=== PATIENT | male | born 1950 | race Caucasian/White ===

== ENCOUNTER 2019-10-22 09:46 | Day surgery (SDC) | payer OTHER ==
[~2019-10-22] VITALS: Ht 182.9 cm; Wt 133.8 kg
--- NOTE | ~2019-10-22 | P ---
[facility] [place] [address] PROCEDURE REPORT Name: NAVDEEP BABB Room #: DEP [facility].#: [id number] Admission: 10/22/19 Attend Phys: Danny Nuno MD Discharge: 10/22/19 Date of : 48 Report #: [id number] THIS REPORT FOR: cc: FAM - Family physician unknown FAM - Family physician unknown Danny Nuno MD ~ CC: Christen Solares MD FAM unknown CAROLYNN Nuno DATE OF SERVICE: 10/22/2019 PREOPERATIVE DIAGNOSIS: Basal cell carcinoma of left lower lid. POSTOPERATIVE DIAGNOSIS: Basal cell carcinoma of left lower lid and cheek. PROCEDURES: Excision of basal cell carcinoma of left lower lid and cheek with frozen sections, myocutaneous flap repair of defect with vascularized tarsoconjunctival flap from left upper lid to left lower lid and full-thickness skin graft from right upper lid to left lower lid. SURGEON: Danny Nuno MD. SUPERSONIC ENGINEER: None. ANESTHESIA: General. COMPLICATIONS: None. INDICATIONS FOR SURGERY: This pleasant 68-year-old gentleman has a history of having had a previous basal cell carcinoma resected from his left lower lid. His left lower lid has unfortunately healed in a manner such that it is retracted. I did not do that surgery. When he presented to me for correction of his lid retraction, it appeared that he still had tumor left medially. It was biopsied in the office and found to indeed be invasive basal cell carcinoma. He presents today for excision of his residual tumor. Informed consent was obtained to include but not limited to the potential risk for loss of vision, bleeding, infection, failure to improve the problem and the potential need for further surgery or treatment. DESCRIPTION OF PROCEDURE: The patient was taken to the operating room where general anesthesia was administered. The left lower lid, the left cheek, the left infratemporal fossa and the left lateral canthus in addition to the left medial canthus were all anesthetized with Xylocaine with epinephrine mixed with Marcaine and Wydase. The patient was subsequently prepped and draped in the [address] [address] PROCEDURE REPORT Name: NAVDEEP BABB Room #: DEP [facility] M.R.#: [id number] Admission: 10/22/19 Attend Phys: Danny Nuno MD Discharge: 10/22/19 Date of : 48 Report #: [id number] usual sterile fashion. A fine tip skin marking pen was then utilized to outline the residual tumor with a small margin of normal appearing tissue of approximately 1-2 mm. The incisions were then made perpendicularly across the eyelid margin and drawn down to a point in the premalar space. Relatively brisk bleeding ensued. The specimen was oriented on a drawing for the waiting pathologist and hemostasis achieved in the field with diligent pinpoint monopolar cautery. The pathologist snap-froze that tissue and found that the medial margin was positive for basal cell carcinoma. An additional 2-3 mm of the medial portion of the wound was then excised in a ____ fashion and passed off the field for the pathologist to examine en-face. Hemostasis was once again re-achieved in the field. She snap-froze that specimen and found that the margin was still positive. An additional 2-3 mm of tissue was then taken across the medial portion of the wound, which basically took the rest of the lid. The field was dried with monopolar cautery. The pathologist took that specimen. She now found that the margins appeared to be clear. This was not the anticipated defect from the beginning of the case. The reconstructive options were considered and a myocutaneous flap developed laterally to allow for suspension of the subsequent tarsal conjunctival flap superior. Relaxing incision was made and myocutaneous flap advanced. Hemostasis was achieved with ____ pinpoint monopolar cautery. That tissue was then suspended from Vicryl sutures laterally from periosteum. The left upper lid was then everted and anesthetized with Xylocaine with epinephrine with Marcaine. This is the same anesthetic mixture used at beginning of the case. A vascularized tarsoconjunctival flap was then developed utilizing an incision that started 3.5 mm above the inferior border of the tarsal plate. A tarsotomy was made across the lid and the huge tarsoconjunctival flap developed utilizing thin section techniques. The flap was not buttonholed, but all of the Marcos's muscle that was visible was taken from the backside of the conjunctivae. That flap was then advanced and secured into the residual defect into the medial canthus allowing a canthopexy to be accomplished with interrupted 6-0 Vicryl sutures. Additional sutures were then used inferiorly and laterally to draw the lid back into a more medial one position and elevate the lid margin. A fine tip skin marking pen was then utilized to outline the full-thickness skin graft from the lateral right upper lid. An additional aliquot of the same anesthetic previously used was then administered. The incisions were then made with a Yazan scissor and a full-thickness skin graft harvested utilizing thin section techniques. Hemostasis was achieved in the donor site with interrupted use of a monopolar cautery. That donor site was then closed with interrupted 6-0 chromic sutures and a running 6-0 plain gut suture. [facility] [address] [place] [address] PROCEDURE REPORT Name: NAVDEEP BABB Room #: DEP [facility]#: [id number] Admission: 10/22/19 Attend Phys: Danny Nuno MD Discharge: 10/22/19 Date of : 48 Report #: [id number] The full thickness skin graft was then defatted and subsequently secured into its bed in the medial left lower lid with 7-0 Vicryl suture, cardinal sutures followed by 6-0 plain gut sutures that were drawn all the way across the width of the lid. The wounds were then cleaned and dressed. The lateral right upper lid incision was dressed with simple erythromycin. The left eye was dressed with erythromycin followed by a Telfa pad, which was held in place with 2 eye pads, silk TAPE and Mastisol. The patient was subsequently transported to the recovery area having tolerated the procedures well with no anesthetic or operative complications being noted. By: [id number] Danny Nuno MD /nt
[~2019-10-22 09:46] MED LIST: ASA81BEC PO; ENTRESTO 49 MG1 EACH PO; GLIPIZIDE 10 MG10 MG PO; METFORMIN HCL500 M3 PO; XARELTO2.5 MG PO; ZOLOFT25 MG PO
[2019-10-22 11:49] VITALS: BP 155/67
--- NOTE | 2019-10-26 10:08 | PATH ---
[facility] [place] [address] PATHOLOGY RPT PROCEDURE Name: NAVDEEP BABB Room #: DEP [facility].#: [id number] Admission: 10/22/19 Date of : 48 Discharge: 10/22/19 Report #: [id number] Path Case #: [id number] [facility] Accession Number: [id number] . 01 Material submitted: . PART A: eyelid - BCCA LEFT LOWER LID FS. Modifiers: left, lower PART B: eyelid - ADDITIONAL MEDIAL MARGIN FS PART C: eyelid - SECOND ADDITIONAL MEDIAN MARGIN FS . 02 Frozen section diagnosis: . FROZEN SECTION DIAGNOSIS (Dr. Maricel Anderson) . FSA1. Skin, BCCA left lower lid, excision: - MEDIAL MARGIN POSITIVE. - Remainder of margins free. . FSB1. Skin, additional medial margin, excision: - POSITIVE FOR INVASIVE CARCINOMA. . FSC1. Skin, second additional medial margin, excision: - No definite invasive carcinoma identified on FS slide. . These findings are discussed with Dr. Danny Nuno in OR 6 and a written report is placed in the patient's chart. . Frozen section performed at [facility], [address] [place], [place] [address], [place] [address]. . FROZEN SECTION GROSS DESCRIPTION A. Specimen is received fresh from the OR labeled with the patient's name, and "BCCA left lower lid", consists of an inverted triangular portion of skin measuring 1 x 0.9 cm in greatest dimension with a thickness of 0.3 cm. The specimen is oriented as superior, lateral inferior and medial. The superior border is inked orange, the lateral border from superior to inferior is inked black, the inferomedial margin is inked blue, and the superomedial margin is inked black. At this point, specimen is sectioned into three pieces and submitted in entirety for frozen section as FSA1. This is subsequently submitted for permanent sections as A1. . B. Specimen is received fresh from the OR labeled with the patient's name, and "additional medial margin", consists of a triangular piece of skin measuring 0.6 x 0.6 x 0.1 cm approximately. The true margin is marked by surgical ink within the OR by Dr. Nuno. This is submitted for frozen section en face as FSB1. This is subsequently submitted for permanent sections as B1. . C. Specimen is received fresh from the OR labeled with the patient's [address] [address] PATHOLOGY RPT PROCEDURE Name: NAVDEEP BABB Room #: DEP [facility] M.R.#: [id number] Admission: 10/22/19 Date of : 48 Discharge: 10/22/19 Report #: [id number] Path Case #: [id number] name, and "second additional medial margin", consists of an inverted triangular specimen measuring approximately 1 x 1 x 0.1 cm. The real margin is inked with surgical ink within the OR by Dr. Nuno. This is submitted en face for frozen section as FSC1. This is subsequently submitted for permanent sections as C1. . (IUV:duplex trimmer; 10/22/2019) IZV/MBR . 02 Diagnosis: A. Skin, left lower lid, excision: - BASAL CELL CARCINOMA. - MEDIAL MARGIN POSITIVE FOR BASAL CELL CARCINOMA. - Lateral side margin, inferior margin, and deep margin free of malignancy. . B. Skin, additional medial margin, excision: - POSITIVE FOR BASAL CELL CARCINOMA. . C. Skin, at second additional medial margin, excision: - Negative for malignancy at true margin. - Inclusion cyst present. . (IUV:duplex trimmer; 10/22/2019) MBR 10/23/2019 1318 Local . 02 Electronically signed: . Maricel Anderson MD, Pathologist NPI- [id number] . 03 Gross description: . PLEASE SEE GROSS DESCRIPTION DICTATED UNDER FROZEN SECTION. /MBR 10/23/2019 1315 Local . 02 Pathologist provided ICD-10: C44.1192 . 02 CPT . 669825, 983909, 993655, 136279, 926706, 116112 Specimen Comment: A courtesy copy of this report has been sent to [phone] Specimen Comment: Report sent to Specimen Comment: A duplicate report has been generated due to demographic updates. Performed at: [address] [facility] [id number] [facility] [address], [place], [place] [id number] [address] [address] PATHOLOGY RPT PROCEDURE Name: NAVDEEP BABB Room #: DEP [facility]..#: [id number] Admission: 10/22/19 Date of : 48 Discharge: 10/22/19 Report #: [id number] Path Case #: [id number] MD Chava Morrow MD Phone: [phone] Performed at: [address] [id number] MD Maricel Anderson MD Phone: [phone] Performed at: 03 [facility] [address] [facility] [address], [place], [place] [id number] MD Chava Morrow MD Phone: [phone]
== END 2019-10-22 14:40 | disposition home or self-care (01) ==
LOC: OR 09:46 → TBA 09:47 → OR 10:01 → EDSTATUS 10:08 → OR 14:40
DX: C44.1192 Basal cell carcinoma of skin of left lower eyelid, including canthus (principal); I10 Essential (primary) hypertension; E11.9 Type 2 diabetes mellitus without complications; G47.30 Sleep apnea, unspecified; F32.9 Major depressive disorder, single episode, unspecified; I48.91 Unspecified atrial fibrillation; Z98.890 Other specified postprocedural states; Z79.899 Other long term (current) drug therapy; Z99.81 Dependence on supplemental oxygen
CPT/HCPCS: 50010; 50101; 50386; 50398; 51636; 56528; 56531; 62110; 62900; 70005

== ENCOUNTER → 2020-06-23 | Day surgery (SDC) | payer OTHER ==
[~2020-06-23] VITALS: Ht 180.3 cm; Wt 134.3 kg
[~2020-06-23] MED LIST changes: +ALLOPURINOL 10100 M1 PO; +ALPRAZOLAM 0.50.5 M1 PO; +AMLODIPINE BESY10 MG PO; +ATORVASTATIN CA10 MG PO; +CARVEDILOL25 MG PO; +FUROSEMIDE 20 M20 M1 PO; +INDOMETHACIN 5050 M1 PO; +LANTUS SOL100 UNIT/1 SUBQ; +NEURONTIN 300M300 M2 PO
[2020-06-23 14:19] VITALS: BP 151/82
[2020-06-23 14:57] LABS: CALCIUM 9.2 mg/dL (8.5-10.1); CREATININE 1.2 mg/dL (0.7-1.3); POTASSIUM 3.6 mmol/L (3.5-5.1)
--- NOTE | 2020-06-27 06:18 | O ---
[facility] [place] [address] OPERATIVE REPORT Name: NAVDEEP BABB Room #: REG [facility]#: [id number] Admission: 06/23/20 Attend Phys: Danny Nuno MD Discharge: Date of : 48 Report #: [id number] THIS REPORT FOR: cc: FAM - Family physician unknown FAM - Family physician unknown Danny Nuno MD ~ CC: MD CARLOS EDUARDO Buchanan MD [facility] unknown ELIER Nuno DATE OF SERVICE: 06/23/2020 PREOPERATIVE DIAGNOSIS: Tumor of left lower lid. POSTOPERATIVE DIAGNOSIS: Widely invasive basal cell carcinoma of left lower lid and cheek and canthus. PROCEDURE: Excision of tumor of left lower lid, cheek and canthus with frozen sections and musculocutaneous flap repair of defect from the temporalis muscle. SURGEON: Danny Nuno MD. ENVIRONMENTAL LAWYER: None. ANESTHESIA: General. COMPLICATIONS: None. INDICATIONS FOR SURGERY: This pleasant 69-year-old gentleman has a remote history of having had a skin cancer removed from his left lower lid around 2011. He initially presented to me earlier this year with what appeared to be a recurrence of tumor in his medial lower lid. He underwent resection of that tumor, which was quite extensive and had a vascularized tarsoconjunctival flap from his left upper lid, drawn down to the medial most portion of the lid along with an anterior lamellar reconstruction. At that time, his frozen sections were thought to be clear. He has subsequently developed a nodular in the lateral most portion of the left lower lid that is suspicious for cancer. This is not in the area that I reconstructed. He presents today for excision of this nodule to determine the histopathologic nature and then appropriate response therein. Informed consent was obtained to include but not limited to the potential risk for loss of vision, bleeding, infection, failure to improve the problem, the potential need for further surgery or treatment. [address] [address] OPERATIVE REPORT Name: NAVDEEP BABB Room #: REG [facility].#: [id number] Admission: 06/23/20 Attend Phys: Danny Nuno MD Discharge: Date of : 48 Report #: [id number] DESCRIPTION OF PROCEDURE: The patient was taken to the operating room where general anesthesia was administered. The left lower lid, the left lateral canthus, the lateral left upper lid, the left cheek and the left infratemporal fossa were anesthetized with Xylocaine with epinephrine mixed with Marcaine and Wydase. The patient was subsequently prepped and draped in the usual sterile fashion. A fine tip skin marking pen was then utilized to outline the lesion including 1-2 mm of normal appearing tissue around its margin. It was basically at the lateral canthus so the initial incision went through the lateral canthus. This centimeter width of tissue was then passed off the field to the waiting pathologist. Hemostasis was achieved in the field with pinpoint monopolar cautery. The pathologist snap froze that specimen and she found that it was indeed a basal cell carcinoma and that it appeared to be clear laterally, but it was widely positive medially. An additional medial margin was then taken removing 3-4 more millimeters of tissue. This was oriented for the pathologist as hemostasis was re-achieved. The pathologist snap froze that specimen and it was positive still for cancer, widely so. An additional margin was then taken medially in a similar fashion removing 4-5 more millimeters of tissue. This tissue was oriented on a drawing for the waiting pathologist and she snap froze it and it once again was widely positive. At this point, the last section of tissue I took went all the way up to the reconstruction that I did on his lower lid earlier this year. This tissue was excised and passed off the field for the waiting pathologist. She snap froze this tissue and found that margin finally appeared to be negative as she was into my reconstruction. The defect was much, much larger than it had been anticipated preoperatively. The patient has already undergone a vascularized tarsoconjunctival flap from his left upper lid, so that tissue was not available. A musculocutaneous flap based on the temporalis muscle was then chosen, reconstructive method undertaken. A fine tip skin marking pen was then utilized to outline an incision that extended superiorly and laterally from the lateral most portion of the wound. It went back towards the ear and then curved posteriorly in front of the pinna. The incision was then made with a 15C blade and the dissection carried down onto the temporalis fascia. The temporalis muscle was then drawn up with the tissue and split in a vertical fashion. The musculocutaneous flap including that muscle tissue rotated then inferomedially to abut the defect. With no good posterior lamellar support, the closure was somewhat complicated, but the lateral canthal angle was sharply reformed as a 5-0 Vicryl suture was placed through part of the flap back into the periosteum superotemporally in the area of the lacrimal [facility] [address] [place] [address] OPERATIVE REPORT Name: NAVDEEP BABB Room #: REG [facility] Patricia#: [id number] Admission: 06/23/20 Attend Phys: Danny Nuno MD Discharge: Date of : 48 Report #: [id number] gland. The flap was secured with interrupted buried 5-0 Vicryl sutures deep both medially and laterally. The final skin closure was accomplished with 6-0 plain gut sutures that were done in an interrupted fashion. The wounds were then cleaned and dressed and erythromycin ophthalmic ointment applied to the globe into the incision. No operative complications were noted. The plan now will be for him to receive postoperative radiation considering the widespread nature of his recurrence. Thank you very much. Supportive dictation to follow. <ELECTRONICALLY SIGNED> By: Danny Nuno MD 06/27/20 0618 1725 2214 Danny Nuno MD /nt
--- NOTE | 2020-06-27 20:06 | PATH ---
[facility] [place] [address] PATHOLOGY RPT PROCEDURE Name: NAVDEEP BABB Room #: REG [facility].#: [id number] Admission: 06/23/20 Date of : 48 Discharge: Report #: [id number] Path Case #: [id number] [facility] Accession Number: [id number] . 01 Material submitted: . PART A: eyelid - LESION LEFT LOWER EYELID - FS. Modifiers: left, lower PART B: eyelid - ADDITIONAL MEDIAL MARGIN - FS. Modifiers: left, lower, 1 PART C: eyelid - SECOND ADDITIONAL MEDIAL MARGIN - FS. Modifiers: left, lower, 2 PART D: eyelid - THIRD ADDITIONAL MEDIAL MARGIN - FS. Modifiers: left, lower, third . 01 Clinical history: . BASAL CELL CARCINOMA OF SKIN OF LEFT LOWER EYELID INCLUDING CANTHUS . 02 Frozen section diagnosis: . FROZEN SECTION DIAGNOSIS: (Maricel Anderson M.D.): . FSA1. Lesion left lower eyelid excision: - BASAL CELL CARCINOMA PRESENT AT MEDIAL MARGIN. . FSB1. Additional medial margin: - POSITIVE FOR MALIGNANCY. . FSC1. Additional second medial margin: - POSITIVE FOR MALIGNANCY. . FSD1. Third additional medial margin: - No definitive invasive carcinoma at new margin (on frozen section slide). . These findings are discussed with Dr. Danny Nuno in OR6 and a written report is placed in the patient's chart. . Frozen sections performed at [facility], [address], [place] [address]. . . FROZEN SECTION GROSS DESCRIPTION: Specimen A is received fresh from the OR labeled with the patient's name, and "lesion left lower lid" consists of an oriented ellipse of skin measuring 1.8 x 1.5 x 0.5 cm. It is oriented as superior, lateral, inferior and medial. The superior to lateral to inferior is inked black. The inferior to medial is inked blue and the medial to superior is inked orange. At this point the specimen is serially sectioned and entirely submitted for frozen section as FSA1, this is subsequently submitted for permanent sections as A1. . [address] [address] PATHOLOGY RPT PROCEDURE Name: NAVDEEP BABB Room #: REG [facility] M..#: [id number] Admission: 06/23/20 Date of : 48 Discharge: Report #: [id number] Path Case #: [id number] Specimen B is received fresh from the OR labeled with the patient's name, and "additional medial margin" consists of a strip of skin measuring approximately 1.8 cm. The true margin is marked by the surgeon. This is submitted en face for frozen section as FSB1, this is subsequently submitted for permanent sections as B1. . Specimen C is received fresh from the OR labeled with the patient's name, and "second additional medial margin" consists of a tiny piece of skin measuring approximately 1.0 cm. The true margin is marked by the surgeon. This is submitted en face for frozen section as FSC1, this is subsequently submitted for permanent sections as C1. . Specimen D is received fresh from the OR labeled with the patient's name, and "third additional medial margin" consists of a tiny wedge of skin measuring 1 x 0.5 x 0.5 cm. The true margin is marked by the surgeon. This is submitted en face for frozen section as FSD1. This is subsequently submitted for permanent sections as D1. (IUV/db; 06/23/2020) IZV/LBQ . 02 Diagnosis: A. "Lesion left lower eyelid", excisional biopsy: - SKIN/CONJUNCTIVA WITH UNDERLYING SKELETAL MUSCLE SHOWING BASAL CELL CARCINOMA, INFILTRATIVE SUBTYPE; INVOLVING THE MEDIAL MARGIN. . B. "Additional medial margin", biopsy: - SKIN/CONJUNCTIVA WITH UNDERLYING SKELETAL MUSCLE SHOWING BASAL CELL CARCINOMA. . C. "Second additional medial margin", biopsy: - SKIN/CONJUNCTIVA WITH UNDERLYING SKELETAL MUSCLE SHOWING BASAL CELL CARCINOMA. . D. "Third additional medial margin", biopsy: - SKIN/CONJUNCTIVA WITH UNDERLYING SKELETAL MUSCLE SHOWING FIBROSIS AND MILD CHRONIC INFLAMMATION; NEGATIVE FOR CARCINOMA. LBQ 06/27/2020 1115 Local . 02 Comment: Clinical correlation is recommended. (CLW/db; 06/27/2020) . 02 Electronically signed: . Anum Arevalo MD, Pathologist NPI- [id number] . 01 [facility] [address] [place] [address] PATHOLOGY RPT PROCEDURE Name: NAVDEEP BABB Room #: REG [facility].#: [id number] Admission: 06/23/20 Date of : 48 Discharge: Report #: [id number] Path Case #: [id number] Gross description: . SEE FROZEN SECTION GROSS DESCRIPTION. /LBQ 06/24/2020 0610 Local . 02 Pathologist provided ICD-10: C44.1192 . 02 CPT . 538623, 832716, 604536, 688143, 539023, 864613, 217187, 871124 Specimen Comment: A courtesy copy of this report has been sent to [phone] Specimen Comment: Report sent to Performed at: [address] [facility] [address], [place] [id number] MD Andrey Munoz MD Phone: [phone] Performed at: [address] [facility] [address] [id number] MD Maricel Anderson MD Phone: [phone]
== END | disposition home or self-care (01) ==
LOC: OR 09:57
PROVIDERS: Anesthesiology; ATTEND Ophthalmology
DX: C44.1192 Basal cell carcinoma of skin of left lower eyelid, including canthus (principal); I10 Essential (primary) hypertension; E11.9 Type 2 diabetes mellitus without complications; E78.5 Hyperlipidemia, unspecified; I48.91 Unspecified atrial fibrillation; M10.9 Gout, unspecified; F32.9 Major depressive disorder, single episode, unspecified; F41.9 Anxiety disorder, unspecified; G47.30 Sleep apnea, unspecified; Z98.890 Other specified postprocedural states; Z79.899 Other long term (current) drug therapy; Z79.01 Long term (current) use of anticoagulants; Z88.0 Allergy status to penicillin
CPT/HCPCS: 50010; 50101; 50386; 50398; 51636; 56528; 56531; 62110; 62900; 64037; 70005